=== PATIENT | female | born 2000 | race Caucasian/White ===

== ENCOUNTER 2018-04-12 17:33 | Outpatient (CLI) | payer OTHER ==
--- NOTE | 2018-04-13 10:48 | Ultrasound Report ---
Reason: IRREGULAR MENSTRUATION Procedure Date: 04/12/2018 Accession Number: [id number] / [id number] Procedure: US - Pelvic w/Transvaginal CPT Code: FULL RESULT: EXAM: PELVIC ULTRASOUND EXAM DATE: 04/12/2018 05:54 PM. CLINICAL HISTORY: Irregular menstruation. COMPARISON: None. TECHNIQUE: Realtime transabdominal pelvic scan performed to identify the uterus and adnexa and as an overview of other pelvic structures, followed by transvaginal scan to provide greater detail of the uterus and adnexa, with static image documentation. FINDINGS: Uterus: 6.7 x 3.2 x 3.2 cm, volume 35.9 cc. Anteverted position. Normal overall size and echotexture. Masses: None. Endometrium: 9 mm. Normal. Cervix: Unremarkable. Right Ovary: 3.7 x 2.6 x 3.0 cm, volume 15.1 cc. Normal echotexture and blood flow. Left Ovary: 2.3 x 2.2 x 3.2 cm, volume 8.5 cc. Normal echotexture and blood flow. Free Fluid: None. Other: None. IMPRESSION: Normal pelvic ultrasound. RADIA
== END 2018-04-12 17:34 | disposition home or self-care (01) ==
LOC: DI 17:33
PROVIDERS: ATTEND Nurse Practitioner Obstetrics & Gynecology
DX: N92.6 Irregular menstruation, unspecified (principal)
CPT/HCPCS: 76830; 76856

== ENCOUNTER 2018-04-16 07:59 | Outpatient (CLI) | payer OTHER ==
[2018-04-16 09:15] LABS: HB2 TOTAL 15.1 g/dL; HEMOGLOBIN A1C 0.55 g/dL; HEMOGLOBIN A1C % 5.5 % (4.6-6.2)
== END 2018-04-16 08:00 | disposition home or self-care (01) ==
LOC: LAB 07:59
PROVIDERS: ATTEND Nurse Practitioner Obstetrics & Gynecology
DX: L70.0 Acne vulgaris (principal); L68.0 Hirsutism; N92.6 Irregular menstruation, unspecified
CPT/HCPCS: 36415; 82951; 83036; 84443

== ENCOUNTER 2021-09-30 12:51 | Emergency (ER) | payer MEDICAID, OTHER ==
[2021-09-30 12:59] VITALS: BP 141/68
[2021-09-30 13:15] LABS: RAPID STREP SCREEN Negative (Negative)
--- NOTE | 2021-09-30 13:19 | ED Physician Documentation ---
PD HPI HEENT - Stated complaint Stated Complaint: THROAT PX - Chief complaint Chief Complaint: Heent - History obtained from History obtained from: Patient - History of Present Illness Timing - onset: How many weeks ago (3) - Additional information Additional information: 21yoF with no significant past medical history presents with 3 weeks of waxing and waning right-sided ear and throat pain. Worse when she wakes up in the morning, sometimes worse in the evenings. Occasionally takes Tylenol for symptoms, however has not taken any recently. Does not have a primary care physician that she can follow-up with. Reports occasional seasonal allergies, does not take any antihistamines. Denies fevers, chills, nausea, vomiting, difficulty swallowing, decreased hearing, other complaints at this time. Review of Systems Ten Systems: 10 systems reviewed and negative Constitutional: denies: Fever, Chills, Myalgias, Fatigue, Weight Loss, Sweats, Reviewed and negative, Other Eyes: denies: Loss of vision, Decreased vision, Photophobia, Discharge, Irritation, Reviewed and negative, Other Ears: reports: Ear pain. denies: Loss of hearing, Drainage/discharge, Tinnitus/ringing, Foreign body Nose: denies: Rhinorrhea / runny nose, Congestion, Epistaxis, Sinus pressure / pain, Foreign Body, Reviewed and negative, Other Throat: reports: Sore throat. denies: Dental pain / toothache, Oral lesions / sores Cardiac: denies: Chest pain / pressure, Palpitations, Pedal edema, Calf pain, Reviewed and negative, Other Respiratory: denies: Dyspnea, Cough, Hemoptysis, Wheezing, Reviewed and negative, Other GI: denies: Abdominal Pain, Abdominal Swelling, Nausea, Vomiting, Constipation, Diarrhea, Hematemesis, Bloody / black stool, Reviewed and negative, Other : denies: Dysuria, Frequency, Hesitancy, Unable to Void, Incontinent, Hematuria, Discharge, LMP, Vaginal bleeding, Irregular menses, Missed period, Now EGA, Control, Hysterectomy, Testicular pain, Testicular mass, Talbot Problem, Reviewed and negative, Other Skin: denies: Rash, Lesions, Abrasion (s), Laceration (s), Bite / sting, Reviewed and negative, Other Musculoskeletal: denies: Neck pain, Back pain, Extremity pain, Joint pain, Extremity swelling, Joint swelling, Pain with weight bearing, Reviewed and negative, Other Neurologic: denies: Generalized weakness, Focal weakness, Numbness, Difficulty speaking, Near syncope, Syncope, Seizure, Confused, Altered mental status, Unresponsive, Headache, Head injury, LOC, Reviewed and negative, Other PD PAST MEDICAL HISTORY - Past Medical History Past Medical History: No - Present Medications Home Medications: Ambulatory Orders Medication Instructions Recorded Confirmed Fluticasone [Flonase] 1 sprays JOHN BID #16 gm 09/30/21 Loratadine 10 mg PO BID 30 Days #60 tab 09/30/21 - Allergies Allergies/Adverse Reactions: Allergies Allergy/AdvReac Type Severity Reaction Status Date / Time Penicillins Allergy Unknown Verified 09/30/21 12:59 PD ED PE NORMAL - Vitals Vital signs reviewed: Yes - General General: Alert and oriented X 3, No acute distress - HEENT HEENT: Atraumatic, PERRL, EOMI, Moist mucous membranes, Dentition benign, Other (L TM with minor clear fluid build up, no erythema. 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 No evidence of infection anywhere. Will trial on flonase and anti-alergy medications. Counseled to follow up with a PCP Departure - Departure Disposition: 01 Home, Self Care Clinical Impression: Allergic pharyngitis Condition: Good Instructions: Allergies Nasal, Nasal [place] Steps Prescriptions: Fluticasone [Flonase] 1 sprays JOHN BID #16 gm Loratadine 10 mg PO BID 30 Days #60 tab Discharge Date/Time: 09/30/21 13:25
== END 2021-09-30 13:25 | disposition home or self-care (01) ==
LOC: ED 12:51
DX: J02.9 Acute pharyngitis, unspecified (principal)
CPT/HCPCS: 87070; 87430; 99282; 99283